=== PATIENT | male | born 1980 | race African-American/Black ===

== ENCOUNTER 2019-12-23 04:40 | Emergency (ER) | payer SELFPAY | END 2019-12-23 05:35 | disposition home or self-care (01) | LOC: ERS 04:40 | DX: H61.23 Impacted cerumen, bilateral (principal) | CPT/HCPCS: 99281 ==

== ENCOUNTER 2019-12-28 01:14 | Emergency (ER) | payer SELFPAY | END 2019-12-28 01:44 | disposition home or self-care (01) | LOC: ERS 01:14 | DX: H61.21 Impacted cerumen, right ear (principal) | CPT/HCPCS: 69209 ==

== ENCOUNTER 2019-12-29 07:57 | Emergency (ER) | payer SELFPAY | END 2019-12-29 08:48 | disposition home or self-care (01) | LOC: ERS 07:57 | DX: H60.91 Unspecified otitis externa, right ear (principal); F41.9 Anxiety disorder, unspecified | CPT/HCPCS: 99282 ==